=== PATIENT | male | born 1935 | race Caucasian/White ===

== ENCOUNTER 2018-08-27 09:25 | Inpatient (IN) ==
[2018-08-27] MEDS ORDERED: Morphine Inj 4 MG/ML Vial IV.PUSH ONE (09:42)
[2018-08-27] MEDS ORDERED: Sod Chloride 0.9% Inj 1,000 ML IV.SIG ONE (09:42)
[2018-08-27 10:10] LABS: Baso # (Auto) 0.1 th/mm3 (0.0-0.2); Baso % (Auto) 0.9 % (0.0-2.0); Eos # (Auto) 0.4 th/mm3 (0.0-0.4); Eos % (Auto) 5.8 % (0.0-4.0); Hematocrit 38.4 % (39.0-51.0); Hemoglobin 13.2 gm/dL (13.0-17.0); Lymph # (Auto) 2.2 th/mm3 (1.0-4.8); Lymph % (Auto) 31.2 % (9.0-44.0); Mean Corpuscular HGB Conc 34.3 % (32.0-36.0); Mean Corpuscular Hemoglobin 31.7 pg (27.0-34.0); Mean Corpuscular Volume 92.4 fL (80.0-100.0); Mean Platelet Volume 6.2 fL (7.0-11.0); Mono # (Auto) 0.7 th/mm3 (0.0-0.9); Mono % (Auto) 10.3 % (0.0-8.0); Neut # (Auto) 3.7 th/mm3 (1.8-7.7); Neut % (Auto) 51.8 % (16.0-70.0); Platelet Count 352 th/mm3 (150-450); Red Blood Count 4.15 mil/mm3 (4.50-5.90); Red Cell Distribution Width 11.7 % (11.6-17.2); White Blood Count 7.1 th/mm3 (4.0-11.0)
[2018-08-27 10:26] LABS: Anion Gap 8 meq/L (5-15); Blood Urea Nitrogen 10 mg/dL (7-18); Calcium 8.6 mg/dL (8.5-10.1); Carbon Dioxide 28.7 meq/L (21.0-32.0); Chloride 82 meq/L (98-107); Glomerular Filtration Rate Greater Than 89 mL/min (>89); Glucose,Random 93 mg/dL (74-106); Potassium 4.3 meq/L (3.5-5.1)
[2018-08-27 10:29] LABS: Sodium 119 meq/L (136-145)
--- NOTE | 2018-08-27 10:43 | ED ---
HPI General Chief complaint: Nausea/Vomiting/Diarrhea Stated complaint: Abd pain x 1 day Time Seen by Provider: 08/27/18 09:41 Source: patient and family Mode of arrival: ambulatory Limitations: no limitations History of Present Illness MD complaint: Reports nausea Onset (ago): day(s) (2) Description of Vomiting: food contents and other (One episode of emesis yesterday) Description of Diarrhea: none Associated Abdominal Pain: Yes Location of pain: Reports diffuse Severity scale (1-10): 8 Relieving factors: none Exacerbating factors: none Context: Reports other (No known factors.) Associated symptoms: Reports altered mental status Related Data Allergies Allergy/AdvReac Type Severity Reaction Status Date / Time No Known Allergies Allergy Verified 08/27/18 09:37 Review of Systems ROS: all other systems reviewed are negative [facility] Medical History Medical History COPD (chronic obstructive pulmonary disease) (Acute) Hyponatremia (Acute) Social History Social History Substance History: No History of Abuse Second Hand Smoke Exposure: No Smoking Status: Former smoker How Often Do You Have a Drink Containing Alcohol: 4 or more times a week Recent Travel in [facility] within the Last 8 Weeks: No Recent Out of Country Travel within the Last 8 Weeks: No Immunization History Tetanus Immunization: Unsure Exam Const General: cooperative, healthy appearing, comfortable, no acute distress and well developed Orientation: alert, awake and oriented x3 HENMT Head: normal to inspection, normocephalic and atraumatic Eyes Alignment and Position: alignment normal and position abnormal Conjunctivae: conjunctivae normal Sclera: sclerae normal EOM: EOM intact bilaterally Neck Neck: normal visual inspection and full ROM Chest Chest: normal inspection of the chest Resp Effort & Inspection: normal respiratory effort and able to speak in complete sentences Auscultation: clear to auscultation bilaterally Cardio Rate: regular rate Rhythm: regular rhythm GI Inspection: normal to inspection Palpation: soft and nontender Back/Spine/Pelvis Cervical Spine: cervical ROM normal Thoracic/Lumbar Spine: thoraco-lumbar ROM normal Skin General: no rashes or lesions noted, turgor normal and dry skin Neuro General: alert, awake, oriented x3, moves all extremities and CN's II-XI intact bilaterally Extrem General: normal to inspection and full ROM Psych Appearance: grossly normal Mental Status: mental status grossly normal Speech and Movement: speech and movement normal Mood: congruent mood Affect: normal affect Attitude: cooperative Thought Process: normal Thought Content: normal Judgment: judgment good Course Consultations Consultation #1: Dr. Lam will admit Time: 10:43 Initial Documented Vital Signs Temperature 96.3 F L 08/27/18 09:29 Pulse Rate 82 08/27/18 09:29 Respiratory Rate 18 08/27/18 09:29 Blood Pressure 127/73 08/27/18 09:29 Pulse Oximetry 96 08/27/18 09:29 Last Documented Vital Signs Temperature 96.3 F L 08/27/18 09:29 Pulse Rate 67 08/27/18 10:08 Respiratory Rate 16 08/27/18 10:08 Blood Pressure 108/69 08/27/18 10:08 Pulse Oximetry 96 08/27/18 10:08 Medical Decision Making MDM Narrative Medical decision making narrative: This patient presents complaining with nausea for the last couple of days with one episode of emesis yesterday. Reports confusion. That has apparently been an ongoing issue. He had a routine blood draw 3 days ago by his primary care doctor. He was found to have hyponatremia. He was placed on oral sodium yesterday but vomited the sodium pill. His called the primary care doctor today to report the emesis following the sodium tablet. The primary care doctor instructed him to come to the emergency department. They do not know the exact level of his sodium. He has had no previous episodes of hyponatremia. He had not been ill in any way except for the confusion prior to the doctor's visit 3 days ago. There have been no new medications. Medical Screen Exam Complete: Yes Emergency Medical Condition: Yes Differential Diagnosis Differential Diagnosis: Differential diagnosis includes but is not limited to viral gastritis, food poisoning, pancreatitis, pneumonia, hepatitis, acute coronary syndrome Lab Data Lab results reviewed: Yes I reviewed the patient's lab results. Result diagrams: 08/27/18 10:03 08/27/18 10:03 Lab Results 08/27/18 08/27/18 Range/Units 10:03 10:03 CBC w Diff Auto diff final WBC 7.1 (4.0-11.0) th/mm3 RBC 4.15 L (4.50-5.90) mil/mm3 Hgb 13.2 (13.0-17.0) gm/dL Hct 38.4 L (39.0-51.0) % MCV 92.4 (80.0-100.0) fL MCH 31.7 (27.0-34.0) pg MCHC 34.3 (32.0-36.0) % RDW 11.7 (11.6-17.2) % Plt Count 352 (150-450) th/mm3 MPV 6.2 L (7.0-11.0) fL Neut % (Auto) 51.8 (16.0-70.0) % Lymph % (Auto) 31.2 (9.0-44.0) % [place] % (Auto) 10.3 H (0.0-8.0) % Eos % (Auto) 5.8 H (0.0-4.0) % Baso % (Auto) 0.9 (0.0-2.0) % Neut # (Auto) 3.7 (1.8-7.7) th/mm3 Lymph # (Auto) 2.2 (1.0-4.8) th/mm3 [place] # (Auto) 0.7 (0.0-0.9) th/mm3 Eos # (Auto) 0.4 (0.0-0.4) th/mm3 Baso # (Auto) 0.1 (0.0-0.2) th/mm3 WBC Differential . Differential Comment . Sodium 119 L* (136-145) meq/L Potassium 4.3 (3.5-5.1) meq/L Chloride 82 L (98-107) meq/L Carbon Dioxide 28.7 (21.0-32.0) meq/L Anion Gap 8 (5-15) meq/L BUN 10 (7-18) mg/dL Creatinine 0.55 L (0.60-1.30) mg/dL Estimated GFR Greater than 89 (>89) mL/min Random Glucose 93 (74-106) mg/dL Calcium 8.6 (8.5-10.1) mg/dL Discharge Plan Discharge Disposition Patient Disposition: 30 Still Patient Discharge Details Diagnosis: Nausea, Acute confusion, Acute hyponatremia Physicians Team ED Provider: Nelda De La Rosa Primary Care Provider: Alex Villatoro Discharge Interventions Interventions: Vital Signs Last Done: 08/27/18 10:08 Status ED Status: With Doctor
[2018-08-27] MEDS ORDERED: Acetaminophen 325 MG Tablet PO PRN (13:34)
[2018-08-27] MEDS: Sodium Chloride 0.45 % Inj 1,000 ML IV.CONT SCH (14:00)
--- NOTE | 2018-08-27 14:03 | P.HP ---
History of Present Illness Primary Care Physician: Alex Villatoro MD Chief Complaint: Abdominal pain/confusion/Low sodium level History of Present Illness: 82-year-old man with past medical history of COPD/asthma well-controlled on Advair Diskus and Ventolin, was refer to the ED by his PCP for evaluation of low sodium and episode of increasing confusion as well as emesis. Apparently, patient had lab work done this past Friday which revealed low sodium for which she was started on 1 g sodium tablet by his PCP. Patient was unable to swallow his first pill, Because he vomited it. Per patient's , he has been having increasing confusion over the past week. He also complained of abdominal pain times 2 months duration. Denies any episode of polydipsia. He has no known history of hyponatremia for which he ever received any treatment. He denies taking any diuretic. During my exam, patient was alert and oriented x2. - Diagnosis (1) Acute hyponatremia (2) Acute metabolic encephalopathy (3) Abdominal pain Inpatient Certification: I certify that the inpatient services were ordered in accordance with Medicare regulations governing the order. This includes certification that hospital inpatient services are reasonable and necessary and in the case of services not specified as inpatient-only under 42 CFR 419.22(n), that they are appropriately provided as inpatient services in accordance to with the 2-midnight benchmark under 43 CFR 412.3(e) Estimated Total Length of Stay (Days): 2 Plans for Post Hospital Care: Not yet determined Review of Systems All other systems reviewed negative except as stated in HPI PMFSH - History History Provided By: Patient - Medical History Medical History: Medical History (Last Reviewed 08/27/18 @ 10:38 by Nedla De La Rosa) COPD (chronic obstructive pulmonary disease) Hyponatremia - Family History Family History: Family History (Last Updated 08/27/18 @ 13:52 by Chas Lam MD) Other No cardiac disease - Tobacco History Second Hand Smoke Exposure: No Smoking Status: Former smoker Tobacco Type: Cigarettes - Alcohol History How Often Do You Have a Drink Containing Alcohol: 4 or more times a week - Substance Use History Substance History: No History of Abuse - Travel History Recent Travel in the [place] Within the Last 8 Weeks: No Recent Travel Out of the Country Within the Last 8 Weeks: No - Immunization History Tetanus Immunization: Unsure Medications and Allergies Active Medications: Active Medications Acetaminophen (Tylenol) 650 mg PO Q4H PRN PRN Reason: Temp > 100.4 Al Hydroxide/Mg Hydroxide (Milk Of Chirag Sunq) 30 ml PO Q12H PRN PRN Reason: Mild Constipation Sodium Chloride (1/2 Normal Saline Inj) 1,000 mls @ 75 mls/hr IV.CONT .[id number] MIGUEL Ondansetron HCl (Zofran Inj) 4 mg IV.PUSH Q6H PRN PRN Reason: NAUSEA OR VOMITING Sodium Chloride (Ns Flush) 2 ml IV.FLUSH PRN PRN PRN Reason: FLUSH AFTER USING IV ACCESS Tolvaptan (Samsca) 15 mg PO DAILY MIGUEL Allergies Allergy/AdvReac Type Severity Reaction Status Date / Time No Known Allergies Allergy Verified 08/27/18 09:37 Home Medications Medication Instructions Recorded Confirmed Type albuterol sulfate [Ventolin HFA] 1 puff INHALATION Q4-6H PRN 08/27/18 08/27/18 History fluticasone-salmeterol [Advair 1 inh INHALATION BID 08/27/18 08/27/18 History Diskus] meloxicam 15 mg PO DAILY 08/27/18 08/27/18 History Exam Vital signs: Vital Signs 08/27/18 09:29 08/27/18 10:08 08/27/18 11:16 Temperature 96.3 F L Pulse Rate 82 67 75 Respiratory Rate 18 16 16 Blood Pressure 127/73 108/69 108/69 Pulse Oximetry 96 96 96 08/27/18 12:00 Temperature 96.3 F L Pulse Rate 71 Respiratory Rate 16 Blood Pressure 115/71 Pulse Oximetry 93 L Intake & Output 08/26/18 08/27/18 08/27/18 18:59 06:59 18:59 Intake Total 1000 / 1000 Balance 1000 / 1000 Weight 51 kg Intake: IV 1000 / 1000 NS Inj 1,000 ML @ Wide Open IV. 1000 / 1000 SIG BOLUS ONE Rx#:[id number] Narrative: GENERAL: NAD SKIN: Warm and dry. HEAD: Atraumatic. Normocephalic. EYES: Pupils equal and round. No scleral icterus. No injection or drainage. ENT: No nasal bleeding or discharge. Mucous membranes pink and moist. NECK: Trachea midline. No JVD. CARDIOVASCULAR: Regular rate and rhythm. RESPIRATORY: No accessory muscle use. Clear to auscultation. Breath sounds equal bilaterally. GASTROINTESTINAL: Abdomen soft, non-tender, nondistended. Hepatic and splenic margins not palpable. MUSCULOSKELETAL: Extremities without clubbing, cyanosis, or edema. No obvious deformities. NEUROLOGICAL: Awake and alert. No obvious cranial nerve deficits. Motor grossly within normal limits. Five out of 5 muscle strength in the arms and legs. Normal speech. PSYCHIATRIC: Appropriate mood and affect; insight and judgment normal. Results - Labs CBC & Chem 7: 08/27/18 10:08/27/18 10:03 Labs: Laboratory Results - last 24 hr 08/27/18 08/27/18 10:03 10:03 CBC w Diff Auto diff final WBC 7.1 RBC 4.15 L Hgb 13.2 Hct 38.4 L MCV 92.4 MCH 31.7 MCHC 34.3 RDW 11.7 Plt Count 352 MPV 6.2 L Neut % (Auto) 51.8 Lymph % (Auto) 31.2 [place] % (Auto) 10.3 H Eos % (Auto) 5.8 H Baso % (Auto) 0.9 Neut # (Auto) 3.7 Lymph # (Auto) 2.2 [place] # (Auto) 0.7 Eos # (Auto) 0.4 Baso # (Auto) 0.1 WBC Differential . Differential Comment . Sodium 119 L* Potassium 4.3 Chloride 82 L Carbon Dioxide 28.7 Anion Gap 8 BUN 10 Creatinine 0.55 L Estimated GFR Greater than 89 Random Glucose 93 Calcium 8.6 Caprini VTE Risk Assessment Caprini VTE Risk Assessment: Moderate/High Risk (score >= 2) Caprini Risk Assessment Model: Point Value = 1 Point Value = 2 Point Value = 3 Point Value = 5 Age 41-60 Minor surgery BMI > 25 kg/m2 Swollen legs Varicose veins or History of unexplained or recurrent spontaneous Oral contraceptives or hormone replacement Sepsis (< 1 month) Serious lung disease, including pneumonia (< 1 month) Abnormal pulmonary function Acute myocardial infarction Congestive heart failure (< 1 month) History of inflammatory bowel disease Medical patient at bed rest Age 61-74 Arthroscopic surgery Major open surgery (> 45 min) Laparoscopic surgery (> 45 min) Malignancy Confined to bed (> 72 hours) Immobilizing plaster cast Central venous access Age >= 75 History of VTE Family history of VTE Factor V Leiden Prothrombin [id number] Lupus anticoagulant Anticardiolipin antibodies Elevated serum homocysteine Heparin-induced thrombocytopenia Other congenital or acquired thrombophilia Stroke (< 1 month) Elective arthroplasty Hip, pelvis, or leg fracture Acute spinal cord injury (< 1 month) Prophylaxis Regimen: Total Risk Factor Score Risk Level Prophylaxis Regimen 0-1 Low Early ambulation 2 Moderate Order ONE of the following: *Sequential Compression Device (SCD) *Heparin 5000 units SQ BID 3-4 Higher Order ONE of the following medications: *Heparin 5000 units SQ TID *Enoxaparin/Lovenox 40 mg SQ daily (WT < 150 kg, CrCl > 30 mL/min) *Enoxaparin/Lovenox 30 mg SQ daily (WT < 150 kg, CrCl > 10-29 mL/min) *Enoxaparin/Lovenox 30 mg SQ BID (WT < 150 kg, CrCl > 30 mL/min) AND/OR *Sequential Compression Device (SCD) 5 or more Highest Order ONE of the following medications: *Heparin 5000 units SQ TID (Preferred with Epidurals) *Enoxaparin/Lovenox 40 mg SQ daily (WT < 150 kg, CrCl > 30 mL/min) *Enoxaparin/Lovenox 30 mg SQ daily (WT < 150 kg, CrCl > 10-29 mL/min) *Enoxaparin/Lovenox 30 mg SQ BID (WT < 150 kg, CrCl > 30 mL/min) AND *Sequential Compression Device (SCD) Assessment and Plan - Assessment (1) Acute hyponatremia Code(s): E87.1 - Hypo-osmolality and hyponatremia Status: Acute (2) Acute metabolic encephalopathy Code(s): G93.41 - Metabolic encephalopathy Status: Acute (3) Abdominal pain Code(s): R10.9 - Unspecified abdominal pain Status: Acute - Plan 82-year-old man with Acute metabolic encephalopathy Likely 2/2 Acute Hyponatremia Acute hyponatremia May be Multifactorial Will check urine and serum osmolality, cortisol level, protein electrophoresis, TSH Normal Blood glucose Start NS 1/2 as well as daily Samsca 15mg with monitoring of Sodium level Abdominal pain Check abdominal x-ray Check lipase level Consult dietitian for decreased appetite COPD/asthma Chronic, no exacerbation Resume outpatient medication DVT prophylaxis:B_SCD
--- NOTE | 2018-08-27 15:48 | XR ---
EXAM DATE: 08/27/2018 12:00 AM EDT AGE/SEX: 82 years / Male INDICATIONS: Abdominal pain. CLINICAL DATA: This is the patient's initial encounter. Patient reports that signs and symptoms have been present for 1 day and indicates a pain score of 6/10. MEDICAL/SURGICAL HISTORY: Chronic obstructive pulmonary disease. Hyponatremia. None. COMPARISON: No prior exams available for comparison. FINDINGS: Examination of the abdomen demonstrates a normal bowel gas pattern. Gaseous distention of bowel loops . Prominent stool in the rectum. No free air is identified. No organomegaly is evident. Osseous str uctures are intact. CONCLUSION: Gaseous distention without obstruction. Electronically signed by: Chas Mcmillan MD 08/27/2018 3:46 PM EDT
[2018-08-28] MEDS: Sodium Chloride 0.45 % Inj 1,000 ML IV.CONT SCH ×2 (03:22→17:40)
[2018-08-28 06:44] LABS: Hematocrit 41.7 % (39.0-51.0); Hemoglobin 13.8 gm/dL (13.0-17.0); Mean Corpuscular Volume 94.8 fL (80.0-100.0); Red Blood Count 4.39 mil/mm3 (4.50-5.90)
[2018-08-28 06:45] LABS: Baso % (Auto) 0.4 % (0.0-2.0); Eos # (Auto) 0.2 th/mm3 (0.0-0.4); Eos % (Auto) 2.7 % (0.0-4.0); Lymph # (Auto) 1.2 th/mm3 (1.0-4.8); Lymph % (Auto) 20.2 % (9.0-44.0); Mean Corpuscular HGB Conc 33.2 % (32.0-36.0); Mean Corpuscular Hemoglobin 31.5 pg (27.0-34.0); Mono # (Auto) 0.6 th/mm3 (0.0-0.9); Mono % (Auto) 9.4 % (0.0-8.0); Neut % (Auto) 67.3 % (16.0-70.0); Platelet Count 371 th/mm3 (150-450); Red Cell Distribution Width 11.9 % (11.6-17.2)
[2018-08-28 07:16] LABS: Alanine Aminotransferase 37 U/L (12-78); Albumin 3.2 g/dL (3.4-5.0); Alkaline Phosphatase 97 U/L (45-117); Anion Gap 7 meq/L (5-15); Aspartate Aminotransferase 38 U/L (15-37); Blood Urea Nitrogen 9 mg/dL (7-18); Carbon Dioxide 28.7 meq/L (21.0-32.0); Chloride 91 meq/L (98-107); Glomerular Filtration Rate Greater Than 89 mL/min (>89); Glucose,Random 73 mg/dL (74-106); Potassium 4.4 meq/L (3.5-5.1); Sodium 127 meq/L (136-145); Total Protein 7.6 g/dL (6.4-8.2)
--- NOTE | 2018-08-28 10:06 | P.DIET ---
Nutritional Evaluation Type of nutrition evaluation: initial Nutrition screening: [facility] Screening comments: 08/27/18 [facility] Poor PO Intake Subjective Oral Diet Tolerance Assessment Indicates: Dentures, Edentulous Subjective Comments: Pt w/100% po for breakfast today. Pt says he has been losing wt "for a long time ". Pt unable to quantify the amount of wt he has lost. Pt says he has no problem chewing. Pt is edentulous and temporary dentures at bedside. His dentures are being adjusted d/t his wt loss and he is using temporary ones for the next 3-months. Pt says he drinks Ensure at home. Pt notes his appetite and po intake have been decreasing. Objective - Diagnosis hyponatremia - Indications of Malnutrition Severity: Severe Characteristics: Weight loss, Insufficient energy intake - Objective Enochs body weight: 75.5 kg % IBW: 68 Body Weight Used for Calculations: Actual (51kg) Energy Needs - Lower Range (kCal/kg): 40 Energy Needs - Upper Range (kCal/kg): 45 Lower Limit kCal/kg (kCals): 2,040 Upper Limit kCal/kg (kCals): 2,295 Lower Limit Protein Factor (Grams per Kg): 1.3 Upper Limit Protein Factor (Grams per Kg): 1.5 Lower Protein Needs (Protein): 66 Upper Protein Needs (Protein): 77 Dietitian Reviewed in Medical Record: Current diet, Curent medications, Intake & Output, Labs, Medical history Diet Order: Cardiac Objective Comments: PMH includes: COPD, hyponatremia Na 127 Meds include: Zofran -BM Assessment Assessment: Pt is at nutritional risk r/t poor po intake and wt loss w/BMI 16.3. Pt tolerated 100% of breakfast today. Rec diet be liberalized to Regular to allow for increased menu choices. Send Ensure Enlive TID(= 350 kcal and 20g protein per serving). Send Ensure pudding BID(= 170 kcal and 4g protein per serving). Labs/ electrolytes reviewed-Na trending up. Dietitian following. Recommendations: 1. Rec diet be liberalized to Regular to allow for increased menu choices 2. Send Ensure Enlive TID 3. Send Ensure pudding BID 4. Dietitian following Dietitian to Monitor: Lab values, Electrolytes, Supplement acceptance, Intake & Output, Diet tolerance, Weight change, PO Intake, Medical course
--- NOTE | 2018-08-28 10:28 | P.PN ---
Subjective Interval history: Follow-up hyponatremia/metabolic encephalopathy August 28, 2018-patient seen and examined, no acute event overnight. Patient alert oriented x2. Sodium up to 127. Denies any headaches, dizziness or shortness of breath Physical Exam Vital signs: Vital Signs 08/27/18 11:16 08/27/18 12:00 08/27/18 16:00 Temperature 96.3 F L 96.3 F L Pulse Rate 75 71 71 Respiratory Rate 16 16 16 Blood Pressure 108/69 115/71 115/71 Pulse Oximetry 96 93 L 93 L 08/27/18 19:00 08/27/18 19:51 08/28/18 00:00 Temperature 97.4 F L 97 F L Pulse Rate 69 62 Respiratory Rate 16 16 Blood Pressure 108/61 105/66 Pulse Oximetry 93 L 93 L 93 L 08/28/18 08:00 Temperature 96.9 F L Pulse Rate 91 H Respiratory Rate 18 Blood Pressure 107/65 Pulse Oximetry 95 Intake & Output 08/27/18 08/28/18 08/28/18 18:59 06:59 18:59 Intake Total 1480 / 1480 1000 / 1000 Balance 1480 / 1480 1000 / 1000 Weight 51 kg 51.5 kg Intake: IV 1000 / 1000 1000 / 1000 1/2 Normal Saline Inj 1,000 ML 1000 / 1000 @ 75 mls/hr IV.CONT .[id number] MIGUEL Rx#:[id number] NS Inj 1,000 ML @ Wide Open IV. 1000 / 1000 SIG BOLUS ONE Rx#:[id number] Oral 480 / 480 Other: # Voids 5 1 # Bowel Movements 0 Narrative: GENERAL: NAD SKIN: Warm and dry. HEAD: Atraumatic. Normocephalic. EYES: Pupils equal and round. No scleral icterus. No injection or drainage. ENT: No nasal bleeding or discharge. Mucous membranes pink and moist. NECK: Trachea midline. No JVD. CARDIOVASCULAR: Regular rate and rhythm. RESPIRATORY: No accessory muscle use. Clear to auscultation. Breath sounds equal bilaterally. GASTROINTESTINAL: Abdomen soft, non-tender, nondistended. Hepatic and splenic margins not palpable. MUSCULOSKELETAL: Extremities without clubbing, cyanosis, or edema. No obvious deformities. NEUROLOGICAL: Awake and alert. No obvious cranial nerve deficits. Motor grossly within normal limits. Five out of 5 muscle strength in the arms and legs. Normal speech. PSYCHIATRIC: Appropriate mood and affect; insight and judgment normal. Results - Labs CBC & Chem 7: 08/28/18 04:55 08/28/18 04:55 Laboratory Results - last 24 hr 08/27/18 08/27/18 08/27/18 10:03 10:03 14:20 CBC w Diff WBC RBC Hgb Hct MCV MCH MCHC RDW Plt Count MPV Neut % (Auto) Lymph % (Auto) [place] % (Auto) Eos % (Auto) Baso % (Auto) Neut # (Auto) Lymph # (Auto) [place] # (Auto) Eos # (Auto) Baso # (Auto) WBC Differential Differential Comment Sodium 119 L* Potassium 4.3 Chloride 82 L Carbon Dioxide 28.7 Anion Gap 8 BUN 10 Creatinine 0.55 L Estimated GFR Greater than 89 Random Glucose 93 Osmolality 252 L Calcium 8.6 Total Bilirubin AST ALT Alkaline Phosphatase Total Protein Albumin TSH 5.510 H Cortisol 08/27/18 08/28/18 08/28/18 14:20 04:55 04:55 CBC w Diff Auto diff final WBC 6.0 RBC 4.39 L Hgb 13.8 Hct 41.7 MCV 94.8 MCH 31.5 MCHC 33.2 RDW 11.9 Plt Count 371 MPV 7.0 Neut % (Auto) 67.3 Lymph % (Auto) 20.2 [place] % (Auto) 9.4 H Eos % (Auto) 2.7 Baso % (Auto) 0.4 Neut # (Auto) 4.0 Lymph # (Auto) 1.2 [place] # (Auto) 0.6 Eos # (Auto) 0.2 Baso # (Auto) 0.0 WBC Differential . Differential Comment . Sodium 127 L Potassium 4.4 Chloride 91 L D Carbon Dioxide 28.7 Anion Gap 7 BUN 9 Creatinine 0.52 L Estimated GFR Greater than 89 Random Glucose 73 L Osmolality Calcium 9.0 Total Bilirubin 0.6 AST 38 H ALT 37 Alkaline Phosphatase 97 Total Protein 7.6 Albumin 3.2 L TSH Cortisol 2.6 - Imaging Impressions Abdomen X-Ray 08/27/18 00:00 CONCLUSION: Gaseous distention without obstruction. Assessment and Plan - Assessment (1) Acute hyponatremia Code(s): E87.1 - Hypo-osmolality and hyponatremia Status: Acute (2) Acute metabolic encephalopathy Code(s): G93.41 - Metabolic encephalopathy Status: Acute (3) Abdominal pain Code(s): R10.9 - Unspecified abdominal pain Status: Acute - Plan 82-year-old man with Acute metabolic encephalopathy-improving Likely 2/2 Acute Hyponatremia Acute hyponatremia-hypotonic hyponatremia Serum osmolality of 252 less than 275, indicated hypotonic hyponatremia Cortisol level pending Normal Blood glucose Currently on NS 1/2 as well as daily Samsca 15mg with monitoring of Sodium level Abdominal pain Abdominal x-ray with finding of Gaseous distention without obstruction Appreciate input from dietitian for decreased appetite COPD/asthma Chronic, no exacerbation Continue outpatient medication DVT prophylaxis:B_SCD
[2018-08-29] MEDS: Sodium Chloride 0.45 % Inj 1,000 ML IV.CONT SCH (07:09)
[2018-08-29 07:12] LABS: Chloride 95 meq/L (98-107); Potassium 4.6 meq/L (3.5-5.1); Sodium 131 meq/L (136-145)
[2018-08-29 07:17] LABS: Calcium 8.6 mg/dL (8.5-10.1)
[2018-08-29 07:18] LABS: Albumin 3.1 g/dL (3.4-5.0); Anion Gap 8 meq/L (5-15); Blood Urea Nitrogen 13 mg/dL (7-18); Carbon Dioxide 28.2 meq/L (21.0-32.0); Glucose,Random 74 mg/dL (74-106)
[2018-08-29 07:21] LABS: Aspartate Aminotransferase 36 U/L (15-37); Glomerular Filtration Rate Greater Than 89 mL/min (>89)
[2018-08-29 07:23] LABS: Total Protein 7.1 g/dL (6.4-8.2)
[2018-08-29 07:24] LABS: Alkaline Phosphatase 88 U/L (45-117)
[2018-08-29 07:31] LABS: Alanine Aminotransferase 32 U/L (12-78)
[2018-08-29 08:56] VITALS: BP 96/57; PULSE 98; RESP 14; TEMP 96.8; O2SAT 92
--- NOTE | 2018-08-29 10:09 | P.PN ---
Subjective Interval history: Follow-up hyponatremia/metabolic encephalopathy August 28, 2018-patient seen and examined, no acute event overnight. Patient alert oriented x2. Sodium up to 127. Denies any headaches, dizziness or shortness of breath August 29, 2018-patient seen and examined, sodium up to 131. Patient is doing well and no complaint this morning. Physical Exam Vital signs: Vital Signs 08/28/18 12:00 08/28/18 15:44 08/28/18 19:00 Temperature 97.2 F L 96.4 F L Pulse Rate 94 H 86 Respiratory Rate 18 18 Blood Pressure 113/66 100/61 Pulse Oximetry 95 94 L 94 L 08/28/18 20:00 08/29/18 00:00 08/29/18 08:00 Temperature 99 F 98.4 F 96.8 F L Pulse Rate 84 88 98 H Respiratory Rate 18 18 14 Blood Pressure 91/56 L 99/59 L 96/57 L Pulse Oximetry 94 L 94 L 92 L Intake & Output 08/28/18 08/29/18 08/29/18 18:59 06:59 18:59 Intake Total 1720 / 1720 360 / 360 1150 / 1150 Output Total 800 / 800 Balance 1720 / 1720 -440 / -440 1150 / 1150 Weight 51.5 kg Intake: IV 1000 / 1000 1150 / 1150 1/2 Normal Saline Inj 1,000 ML 1000 / 1000 1150 / 1150 @ 75 mls/hr IV.CONT .[id number] MIGUEL Rx#:[id number] Oral 720 / 720 360 / 360 Output: Urine 800 / 800 Other: # Voids 3 # Bowel Movements 1 Narrative: GENERAL: NAD SKIN: Warm and dry. HEAD: Atraumatic. Normocephalic. EYES: Pupils equal and round. No scleral icterus. No injection or drainage. ENT: No nasal bleeding or discharge. Mucous membranes pink and moist. NECK: Trachea midline. No JVD. CARDIOVASCULAR: Regular rate and rhythm. RESPIRATORY: No accessory muscle use. Clear to auscultation. Breath sounds equal bilaterally. GASTROINTESTINAL: Abdomen soft, non-tender, nondistended. Hepatic and splenic margins not palpable. MUSCULOSKELETAL: Extremities without clubbing, cyanosis, or edema. No obvious deformities. NEUROLOGICAL: Awake and alert. No obvious cranial nerve deficits. Motor grossly within normal limits. Five out of 5 muscle strength in the arms and legs. Normal speech. PSYCHIATRIC: Appropriate mood and affect; insight and judgment normal. Results - Labs CBC & Chem 7: 08/28/18 04:55 08/29/18 05:55 Laboratory Results - last 24 hr 08/28/18 08/29/18 17:10 05:55 Sodium 131 L Potassium 4.6 Chloride 95 L Carbon Dioxide 28.2 Anion Gap 8 BUN 13 Creatinine 0.63 Estimated GFR Greater than 89 Random Glucose 74 Calcium 8.6 Total Bilirubin 0.6 AST 36 ALT 32 Alkaline Phosphatase 88 Total Protein 7.1 Albumin 3.1 L Urine Osmolality 224 L Assessment and Plan - Assessment (1) Acute hyponatremia Code(s): E87.1 - Hypo-osmolality and hyponatremia Status: Acute (2) Acute metabolic encephalopathy Code(s): G93.41 - Metabolic encephalopathy Status: Acute (3) Abdominal pain Code(s): R10.9 - Unspecified abdominal pain Status: Acute - Plan 82-year-old man with Acute metabolic encephalopathy-improved Likely 2/2 Acute Hyponatremia Acute hyponatremia-hypotonic hyponatremia Serum osmolality of 252 less than 275, indicated hypotonic hyponatremia Cortisol level pending Normal Blood glucose Currently on NS 1/2 as well as daily Samsca 15mg Na up to 131 Abdominal pain Abdominal x-ray with finding of Gaseous distention without obstruction Appreciate input from dietitian for decreased appetite COPD/asthma Chronic, no exacerbation Continue outpatient medication DVT prophylaxis:B_SCD
--- NOTE | 2018-08-29 10:11 | P.DS ---
Date of admission: 08/27/18 10:43 Primary care physician: Alex Villatoro MD Brief History from admission: 82-year-old man with past medical history of COPD/asthma well-controlled on Advair Diskus and Ventolin, was refer to the ED by his PCP for evaluation of low sodium and episode of increasing confusion as well as emesis. Apparently, patient had lab work done this past Friday which revealed low sodium for which she was started on 1 g sodium tablet by his PCP. Patient was unable to swallow his first pill, Because he vomited it. Per patient's , he has been having increasing confusion over the past week. He also complained of abdominal pain times 2 months duration. Denies any episode of polydipsia. He has no known history of hyponatremia for which he ever received any treatment. He denies taking any diuretic. During my exam, patient was alert and oriented x2. DS: Diagnosis - Discharge Diagnosis (1) Acute hyponatremia Status: Acute (2) Acute metabolic encephalopathy Status: Acute (3) Abdominal pain Status: Acute DS: Medications - Discharge Medications Prescriptions: tolvaptan [Samsca] 15 mg PO DAILY #2 tab DS: Summary Hospital Course: While in hospital, patient was treated for: Acute metabolic encephalopathy-improved Likely 2/2 Acute Hyponatremia Acute hyponatremia-hypotonic hyponatremia Serum osmolality of 252 less than 275, indicated hypotonic hyponatremia Cortisol level wnl Normal Blood glucose Patient was treated with NS 1/2 as well as daily Samsca 15mg Na up to 131 prior to discharge Abdominal pain Abdominal x-ray with finding of Gaseous distention without obstruction Appreciate input from dietitian for decreased appetite COPD/asthma Chronic, no exacerbation Continue outpatient medication DVT prophylaxis:B_SCD - Time Spent with Patient Total time spent providing and/or coordinating discharge services: Less than 30 minutes - Quality: VTE Deep Vein Thrombosis/Pulmonary Embolism Present on Admission: No Exam Vital signs: Vital Signs 08/28/18 12:00 08/28/18 15:44 08/28/18 19:00 Temperature 97.2 F L 96.4 F L Pulse Rate 94 H 86 Respiratory Rate 18 18 Blood Pressure 113/66 100/61 Pulse Oximetry 95 94 L 94 L 08/28/18 20:00 08/29/18 00:00 08/29/18 08:00 Temperature 99 F 98.4 F 96.8 F L Pulse Rate 84 88 98 H Respiratory Rate 18 18 14 Blood Pressure 91/56 L 99/59 L 96/57 L Pulse Oximetry 94 L 94 L 92 L Intake & Output 08/28/18 08/29/18 08/29/18 18:59 06:59 18:59 Intake Total 1720 / 1720 360 / 360 1150 / 1150 Output Total 800 / 800 Balance 1720 / 1720 -440 / -440 1150 / 1150 Weight 51.5 kg Intake: IV 1000 / 1000 1150 / 1150 1/2 Normal Saline Inj 1,000 ML 1000 / 1000 1150 / 1150 @ 75 mls/hr IV.CONT .[id number] [facility]IGU[facility] Rx#:[id number] Oral 720 / 720 360 / 360 Output: Urine 800 / 800 Other: # Voids 3 # Bowel Movements 1 Narrative: GENERAL: NAD SKIN: Warm and dry. HEAD: Atraumatic. Normocephalic. EYES: Pupils equal and round. No scleral icterus. No injection or drainage. ENT: No nasal bleeding or discharge. Mucous membranes pink and moist. NECK: Trachea midline. No JVD. CARDIOVASCULAR: Regular rate and rhythm. RESPIRATORY: No accessory muscle use. Clear to auscultation. Breath sounds equal bilaterally. GASTROINTESTINAL: Abdomen soft, non-tender, nondistended. Hepatic and splenic margins not palpable. MUSCULOSKELETAL: Extremities without clubbing, cyanosis, or edema. No obvious deformities. NEUROLOGICAL: Awake and alert. No obvious cranial nerve deficits. Motor grossly within normal limits. Five out of 5 muscle strength in the arms and legs. Normal speech. PSYCHIATRIC: Appropriate mood and affect; insight and judgment normal. Results Procedures completed during hospitalization: None Labs on day of discharge: Labs from last 24 hours 08/29/18 08/28/18 05:55 17:10 Sodium 131 L Potassium 4.6 Chloride 95 L Carbon Dioxide 28.2 Anion Gap 8 BUN 13 Creatinine 0.63 Estimated GFR Greater than 89 Random Glucose 74 Calcium 8.6 Total Bilirubin 0.6 AST 36 ALT 32 Alkaline Phosphatase 88 Total Protein 7.1 Albumin 3.1 L Urine Osmolality 224 L - Impressions ITS Impressions Abdomen X-Ray 08/27/18 00:00 CONCLUSION: Gaseous distention without obstruction. Discharge Plan - Discharge Disposition Patient Disposition: Discharge Home - Discharge Condition Condition: Good - Discharge Order Discharge Orders: Discharge Order (Routine); Ordered 08/29/18 Ordered By: Chas Lam - Physicians Team Primary Care Provider: Alex Villatoro Attending Provider: Chas Lam Other Providers: Demarco Pal
== END 2018-08-29 12:14 | disposition home or self-care (01) ==
LOC: PHED 09:25 → PH3 10:43 → PHED 11:38 → UNDODISIN 13:15
PROVIDERS: ADMIT Hospitalist; ATTEND Hospitalist